=== PATIENT | female | born 1960 | race Caucasian/White ===

== ENCOUNTER → 2017-01-10 | Outpatient (CLI) | payer OTHER | LOC: MC.RAD 07:00 | DX: Z12.31 Encounter for screening mammogram for malignant neoplasm of breast (principal); D24.2 Benign neoplasm of left breast; D24.1 Benign neoplasm of right breast ==

== ENCOUNTER → 2017-10-01 | Outpatient (CLI) | payer BC, OTHER ==
[~2017-10-01] MED LIST: ESTRACE 1MG1 MG/TAB PO; HAIRSKINNAILS PO
== END ==
LOC: COL.RAD 08:52
DX: K80.20 Calculus of gallbladder without cholecystitis without obstruction (principal)

== ENCOUNTER → 2017-10-03 | Outpatient (CLI) | payer BC, OTHER | LOC: COL.RAD 07:39 | DX: K80.80 Other cholelithiasis without obstruction (principal) | CPT/HCPCS: A9537 ==

== ENCOUNTER 2018-05-25 00:40 | Emergency (ER) | payer BC, OTHER ==
[~2018-05-25] VITALS: Ht 157.5 cm; Wt 68.2 kg
[2018-05-25 00:42] VITALS: TEMP 97.1
[2018-05-25 01:00] LABS: BASO # 0.1 (0.0-0.2); BASO % 0.6 % (0.0-2.0); EOS # 0.1 (0.0-0.7); EOS % 0.9 % (0-4.0); GRAN # 2.9 (1.4-6.5); HEMATOCRIT 40.6 % (37.0-47.0); HEMOGLOBIN 13.8 g/dl (12.5-16.0); LYMPH # 5.4 (1.2-3.4); LYMPH % 59.6 % (20.0-51.0); MEAN CELL VOLUME 91 fl (80.0-100.0); MEAN CORPUSCULAR HEMOGLOBIN 31 pg (27.0-31.0); MEAN CORPUSCULAR HGB CONC 34 g/dl (33.0-37.0); MEAN PLATELET VOLUME 10.5 fl (7.4-10.4); MONO # 0.6 (0.1-0.6); MONO % 6.5 % (1.7-9.3); PLATELET COUNT 222 K/mm3 (130-400); RED BLOOD COUNT 4.44 M/mm3 (4.10-5.30); REDCELL DISTRIBUTION WIDTH-CV 12.5 % (11.5-14.5)
[2018-05-25 01:09] LABS: ALBUMIN 4.1 gm/dL (3.5-5.0); BILIRUBIN,TOTAL 0.5 mg/dL (0.0-1.0); C-REACTIVE PROTEIN 1.7 mg/dL (0.0-0.9); CALCIUM 8.8 mg/dL (8.4-10.2); CREATININE, serum 0.73 mg/dL (0.52-1.25); POTASSIUM 3.8 mmol/L (3.4-5.0); TOTAL PROTEIN 7.1 gm/dL (6.4-8.2)
[2018-05-25 01:48] LABS: COLLECTION METHOD CLEAN CATCH
[2018-05-25 01:54] LABS: PH 7 (5-8); URINE APPEARANCE Clear; URINE BACTERIA Rare /hpf; URINE BILIRUBIN Negative (NEGATIVE); URINE BLOOD Negative (NEGATIVE); URINE COLOR Colorless; URINE GLUCOSE Negative (NEGATIVE); URINE KETONE Negative (NEGATIVE); URINE LEUKOCYTE ESTERASE Negative (NEGATIVE); URINE NITRATE Negative (NEGATIVE); URINE PROTEIN(semi-quant) Negative (NEGATIVE); URINE RBC 0-2 /hpf; URINE UROBILINOGEN Negative (NEGATIVE)
[2018-05-25 02:02] VITALS: BP 120/71
[2018-05-25] MEDS ORDERED: PREDNISONE10 MG PO (02:11)
[2018-05-25 02:13] VITALS: PULSE 74
== END 2018-05-25 02:55 | disposition home or self-care (01) ==
LOC: COL.ER 00:40
PROVIDERS: Physician Assistant
DX: T78.40XA Allergy, unspecified, initial encounter (principal)
CPT/HCPCS: J0171; J1200; J2765; J2930; J7030

== ENCOUNTER → 2018-07-22 | Outpatient (CLI) | payer BC, OTHER ==
[~2018-07-22] MED LIST changes: +PREDNISONE10 MG PO
== END ==
LOC: COL.RAD 13:33
DX: K76.89 Other specified diseases of liver (principal); Z90.49 Acquired absence of other specified parts of digestive tract; Z90.710 Acquired absence of both cervix and uterus
CPT/HCPCS: Q9967

== ENCOUNTER → 2018-10-01 | Outpatient (CLI) | payer BC, OTHER | LOC: MC.RAD 11:40 | DX: Z12.31 Encounter for screening mammogram for malignant neoplasm of breast (principal) ==

== ENCOUNTER → 2019-06-05 | Outpatient (CLI) | payer BC, OTHER | LOC: COL.RAD 12:50 | DX: R13.10 Dysphagia, unspecified (principal) ==

== ENCOUNTER → 2019-10-27 | Outpatient (CLI) | payer BC, OTHER | LOC: MC.RAD 07:54 | DX: Z12.31 Encounter for screening mammogram for malignant neoplasm of breast (principal) ==

== ENCOUNTER → 2020-12-01 | Outpatient (CLI) | payer BC, OTHER | LOC: MC.RAD 07:30 | DX: Z12.31 Encounter for screening mammogram for malignant neoplasm of breast (principal) ==

== ENCOUNTER → 2021-12-13 | Outpatient (CLI) | payer BC, OTHER | LOC: MC.RAD 07:13 | DX: Z12.31 Encounter for screening mammogram for malignant neoplasm of breast (principal) ==

== ENCOUNTER → 2023-01-08 | Outpatient (CLI) | payer BC, OTHER | LOC: MC.RAD 08:47 | DX: Z12.31 Encounter for screening mammogram for malignant neoplasm of breast (principal) ==

== ENCOUNTER → 2024-01-28 | Outpatient (CLI) | payer BC, OTHER ==
[~2024-01-28] MED LIST changes: +NORCO 325 MG-51 TAB PO
== END ==
LOC: MC.RAD 13:17
DX: Z12.31 Encounter for screening mammogram for malignant neoplasm of breast (principal)

== ENCOUNTER 2024-04-28 17:59 | Emergency (ER) | payer BC, OTHER ==
[~2024-04-28] VITALS: Ht 157.5 cm; Wt 72.7 kg
[2024-04-28 18:15] VITALS: BP 128/82; TEMP 98
[2024-04-28] MEDS ORDERED: Home HYDROcodone/Acetaminophen 5/325 MG #4 TABS/PACK PO ONE (21:30)
[2024-04-28 21:45] VITALS: PULSE 76
== END 2024-04-28 21:56 | disposition home or self-care (01) ==
LOC: COL.ER 17:59
DX: S76.811A Strain of other specified muscles, fascia and tendons at thigh level, right thigh, initial encounter (principal); X50.1XXA Overexertion from prolonged static or awkward postures, initial encounter; Y93.01 Activity, walking, marching and hiking
CPT/HCPCS: L1830; L1846

== ENCOUNTER 2024-06-18 15:35 | Emergency (ER) | payer BC, OTHER ==
[~2024-06-18] VITALS: Ht 157.5 cm; Wt 74.1 kg
[2024-06-18 15:49] VITALS: TEMP 98.2
[2024-06-18 16:39] LABS: BASO # 0.1 K/mm3 (0.0-0.2); BASO % 0.7 % (0.0-2.0); EOS # 0.1 K/mm3 (0.0-0.7); EOS % 1.2 % (0.0-4.0); GRAN # 4.7 K/mm3 (1.4-6.5); HEMATOCRIT 41.6 % (37.0-47.0); LYMPH # 2.3 K/mm3 (1.2-3.4); LYMPH % 29.5 % (20.0-51.0); MEAN CELL VOLUME 92 fl (80.0-100.0); MEAN CORPUSCULAR HEMOGLOBIN 31 pg (27-31); MEAN CORPUSCULAR HGB CONC 34 g/dl (33.0-37.0); MEAN PLATELET VOLUME 10.3 fl (7.4-10.4); MONO # 0.5 K/mm3 (0.1-0.6); MONO % 6.3 % (1.7-9.3); PLATELET COUNT 242 K/mm3 (130-400); REDCELL DISTRIBUTION WIDTH-CV 12.2 % (11.5-14.5)
[2024-06-18 16:45] LABS: INR 0.9 (0.8-3.0); PROTHROMBIN TIME 10.3 SECONDS (9.7-12.8)
[2024-06-18 16:59] LABS: ALANINE AMINOTRANSFERASE 11 U/L (0-55); ALBUMIN 3.9 g/dL (3.4-4.8); ALKALINE PHOSPHATASE 67 U/L (40-150); ANION GAP 11 mmol/L (7-16); AST,SGOT 15 U/L (5-34); BILIRUBIN,TOTAL 0.3 mg/dL (0.2-1.2); BLOOD UREA NITROGEN 17 mg/dL (10-20); CALCIUM 9.3 mg/dL (8.4-10.2); CHLORIDE 106 mEq/L (98-107); GLUCOSE 110 mg/dL (70-99); POTASSIUM 4.4 mEq/L (3.5-4.5); SODIUM 139 mEq/L (136-145); TOTAL PROTEIN 7.2 g/dl (6.2-8.1)
[2024-06-18 17:10] LABS: TROPONIN-I < 0.010 ng/mL (0.00-0.033)
[2024-06-18] MEDS ORDERED: Iohexol 300 - 100 ML VIAL IV ONE (17:16)
[2024-06-18] MEDS ORDERED: NS 100 ML IV SCH (17:17)
[2024-06-18 18:39] VITALS: BP 198/68; PULSE 69
== END 2024-06-18 18:45 | disposition home or self-care (01) ==
LOC: COL.ER 15:35
PROVIDERS: Family Medicine
DX: R06.09 Other forms of dyspnea (principal); R53.81 Other malaise
CPT/HCPCS: A9284; Q9967